=== PATIENT | male | born 1980 | race Caucasian/White ===

== ENCOUNTER 2019-02-03 22:15 | Emergency (ER) | payer OTHER ==
--- NOTE | 2019-02-03 22:24 | EDPHY ---
H & P Stated Complaint: right knee injury Time Seen by Provider: 02/03/19 22:24 HPI/ROS: HPI CHIEF COMPLAINT: Right knee discomfort HISTORY OF PRESENT ILLNESS: Patient is a 38-year-old male, otherwise healthy denies any significant medical history does not take any daily medications presents emergency room right knee pain after was playing soccer in injured. Patient states he went up in the air to kick a ball with his right leg, another player hit him on the medial aspect of the right knee. He felt pain to the lateral aspect of the right knee continues to have pain on lateral aspect of the right knee. Especially when he goes to flex his knee. He can fully straighten his knee. He has no numbness or tingling. Is no pain on the medial aspect of the however lateral joint line he has discomfort. Has full extension. Able to flex knee but has discomfort. No significant swelling noted on exam. No ecchymosis. Past Medical History: Denies significant medical history Past Surgical History: Denies significant surgical history Social History: Denies drugs alcohol tobacco Family History: ROS REVIEW OF SYSTEMS: 10 Systems were reviewed and negative with the exception of the elements mentioned in the history of present illness. Exam Constitutional triage nursing summary reviewed, vital signs reviewed, awake/ alert. Eyes normal conjunctivae and sclera, EOMI, PERRLA. HENT normal inspection, atraumatic, moist mucus membranes, no epistaxis, neck supple/ no meningismus, no raccoon eyes. Respiratory clear to auscultation bilaterally, normal breath sounds, no respiratory distress, no wheezing. Cardiovascular rate normal, regular rhythm, no murmur, no edema, distal pulses normal. Gastrointestinal soft, non-tender, no rebound, no guarding, normal bowel sounds, no distension, no pulsatile mass. Genitourinary no CVA tenderness. Musculoskeletal right lower extremity: Good distal pulse, good cap refill, no signs of significant swelling or ecchymosis. Mild tender palpation over the right lateral joint line. Full range of motion. No crepitus. No joint effusion on exam. Normal sensation. Negative anterior-posterior drawer sign no midline vertebral tenderness, full range of motion, no calf swelling, no tenderness of extremities, no meningismus, good pulses, neurovascularly intact. Skin pink, warm, & dry, no rash, skin atraumatic. Neurologic awake, alert and oriented x 3, AAOx3, moves all 4 extremities equally, motor intact, sensory intact, CN II-XII intact, normal cerebellar, normal vision, normal speech. Psychiatric normal mood/affect. Heme/Lymph/Immune no lymphadenopathy. Differential Diagnosis: Includes but is not limited to in a particular order right knee sprain, right knee contusion, right knee fracture, meniscal injury, ligamentous injury Medical Decision Making: Plan for this patient x-ray right knee, ice pack, anti -inflammatory pain medicine Tylenol and Motrin. Re-evaluation: Patient will need to be placed in knee immobilizer, crutches, he will need to ice, anti-inflammatory pain medicine. Keep his leg elevated. X-ray of the right knee reviewed. Negative for acute traumatic injury or fracture. Clinically on exam the patient may have a lateral collateral ligament injury given his focal tenderness on the lateral aspect of his right knee. I do recommend knee immobilizer and crutches. Ice, anti-inflammatory pain medicine. Additionally I do recommend he follows up with Orthopedics. He has agreed for this plan and agrees for discharge is comfortable this plan. Source: Patient - Personal History Current Tetanus/Diphtheria Vaccine: No Current Tetanus Diphtheria and Acellular Pertussis (TDAP): No - Medical/Surgical History Hx Asthma: No Hx Chronic Respiratory Disease: No Hx Diabetes: No Hx Cardiac Disease: No Hx Renal Disease: No Hx Cirrhosis: No Hx Alcoholism: No Hx HIV/AIDS: No Hx Splenectomy or Spleen Trauma: No Other PMH: denies - Social History Smoking Status: Never smoked Constitutional: Initial Vital Signs Temperature (C) 37.1 C 02/03/19 22:17 Heart Rate 83 02/03/19 22:17 Respiratory Rate 16 02/03/19 22:17 Blood Pressure 120/70 02/03/19 22:17 O2 Sat (%) 94 02/03/19 22:17 O2 Delivery Mode Room Air Allergies/Adverse Reactions: No Known Allergies Allergy (Verified 02/03/19 22:21) Home Medications: Medication Instructions Recorded NK [No Known Home Meds] 12/14/13 Medical Decision Making - Diagnostics Imaging Results: Imaging Impressions Knee X-Ray 02/03/19 22:29 Impression: No evidence for acute osseous abnormality right knee. - Data Points Medications Given: Discontinued Medications Acetaminophen (Tylenol) 1,000 mg PO EDNOW ONE Stop: 02/03/19 22:30 Last Admin: 02/03/19 22:31 Dose: 1,000 mg Ibuprofen (Motrin) 800 mg PO EDNOW ONE Stop: 02/03/19 22:30 Last Admin: 02/03/19 22:32 Dose: 800 mg Departure - Departure Disposition: Home, Routine, Self-Care Clinical Impression: Knee sprain Qualifiers: Encounter type: initial encounter Involved ligament of knee: lateral collateral ligament Laterality: right Qualified Code(s): S83.421A - Sprain of lateral collateral ligament of right knee, initial encounter Condition: Good Instructions: Knee Sprain (ED) Additional Instructions: 1. Elevate your leg. 2. Ice 3. Take anti-inflammatory pain medicine alternate Tylenol and Motrin every 6-8 hours 4. Follow up with Orthopedics. 5. Crutches and knee immobilizer Referrals: NONE *PRIMARY CARE P,. [Primary Care Provider] - As per Instructions Leighton Malone MD [Medical Doctor] - As per Instructions
[2019-02-03] MEDS ORDERED: IBUPROFEN 800 MG TAB PO ONE (22:29)
[2019-02-03] MEDS ORDERED: ACETAMINOPHEN 500 MG TAB PO ONE (22:29)
[2019-02-03 23:49] VITALS: BP 123/75
== END 2019-02-03 23:45 | disposition home or self-care (01) ==
DX: S83.421A Sprain of lateral collateral ligament of right knee, initial encounter (principal); W18.49XA Other slipping, tripping and stumbling without falling, initial encounter; Y93.66 Activity, soccer; Y92.322 Soccer field as the place of occurrence of the external cause
CPT/HCPCS: L1830